=== PATIENT | male | born 1940 | race Caucasian/White ===

== ENCOUNTER → 2016-11-14 | Outpatient (CLI) | payer MEDICARE, OTHER | LOC: MW.CHENT 08:00 | PROVIDERS: ATTEND Otolaryngology | DX: R49.0 Dysphonia (principal); J38.7 Other diseases of larynx; K21.9 Gastro-esophageal reflux disease without esophagitis | CPT/HCPCS: 31575; G0463 ==

== ENCOUNTER 2016-12-14 10:31 | Day surgery (SDC) | payer MEDICARE, OTHER ==
[~2016-12-14 10:31] MED LIST: Lactated Ringers 1,000 ML IV SCH
--- NOTE | 2016-12-14 12:47 | PCM.PREANE ---
Preanesthetic Assessment - Procedure Proposed Procedure: laryngoscopy with biopsy of known lesion for diagnosis - Anesthesia/Transfusion/Family Hx Anesthesia History: Prior Anesthesia Without Reaction Type of Anesthesia Reaction: Unknown Other Type of Anesthesia Reaction Comment: Denies any known problems in past, no known family hx: problems Family History of Anesthesia Reaction: No Type of Transfusion Reactions: Reports: Unknown Intubation History: Unknown Additional History: Stroke within last year. Spouse at bedside for interview and exam. - Review of Systems General: Weakness (with some orthostatic light headedness since stroke) Pulmonary: No Symptoms Cardiovascular: Other (HTN, Hypercholesterolemia, Thrombocytopenia, CAD (uses nitroglycerin)) Neurological: Pre-Existing Deficit (right hand dysfunction since stroke), Weakness, Other (Parkinsonism) Other: Reports: Thyroid Problems (hypothyroid), Depression, Anxiety - Physical Assessment NPO Status Date: 12/13/16 NPO Status Time: 21:30 O2 Sat by Pulse Oximetry: 96 Respiratory Rate: 16 Vital Signs: Last Vital Signs Temp 99.3 F 12/14/16 11:12 Pulse 69 12/14/16 11:12 Resp 16 12/14/16 11:12 BP 155/89 H 12/14/16 11:12 Pulse Ox 96 12/14/16 11:12 Height: 5 ft 10 in Weight: 186 lb ASA Class: 3 Mental Status: Alert & Oriented x3 Airway Class: Mallampati = 4 Dentition: Reports: [place](s), Broken Tooth/Teeth Thyro-Mental Finger Breadths: 3 Mouth Opening Finger Breadths: 2 ROM/Head Extension: Limited/Partial Lungs: Clear to auscultation, Normal respiratory effort Cardiovascular: Regular Rate, Regular Rhythm, No Murmurs - Allergies Allergies/Adverse Reactions: Allergies Allergy/AdvReac Type Severity Reaction Status Date / Time bupropion Allergy UNKNOWN Verified 03/02/16 13:49 MDT ciprofloxacin [From Cipro] Allergy Stomach Verified 03/02/16 13:49 MDT Upset - Blood Blood Available: No Product(s) Available: None - Anesthesia Plan Pre-Op Medication Ordered: None - Acknowledgements Anesthesia Type Planned: General Anesthesia (will need to use indirect laryngoscopy for airway access) Pt an Appropriate Candidate for the Planned Anesthesia: Yes Alternatives and Risks of Anesthesia Discussed w Pt/Guardian: Yes Pt/Guardian Understands and Agrees with Anesthesia Plan: Yes PreAnesthesia Questionnaire HEENT History: Reports: Glaucoma, Retinal Detachment Cardiovascular History: Reports: CAD, High Cholesterol, Hypertension Respiratory History: Reports: Other (See Below) Gastrointestinal History: Reports: Hiatal Hernia, Other (See Below) Other Gastrointestinal History: schatzcki's ring Genitourinary History: Reports: Prostate Disorder, Renal Calculus Musculoskeletal History: Reports: Arthritis, Back Pain, Chronic, Fracture, Other (See Below) Other Musculoskeletal History: shoulder pain Neurological History: Reports: CVA, Parkinson's, Vertigo, Other (See Below) Other Neuro History: R hand paresthesia, "bleeding stroke in jun, 2016" Psychiatric History: Reports: Anxiety, Depression Endocrine/Metabolic History: Reports: Hypothyroidism Hematologic History: Reports: Other (See Below) Other Hematologic History: thrombocytopenia Oncologic (Cancer) History: Reports: Prostate Dermatologic History: Reports: Psoriasis - Past Surgical History Head Surgeries/Procedures: Reports: None HEENT Surgical History: Reports: Adenoidectomy, Detached Retina, Tonsillectomy Cardiovascular Surgical History: Reports: Coronary Artery Stent GI Surgical History: Reports: EGD Male Surgical History: Reports: Prostatectomy Musculoskeletal Surgical History: Reports: Other (See Below) Other Musculoskeletal Surgeries/Procedures:: rt carpal tunnel procedure, ORIF of R tibia - SUBSTANCE USE Smoking Status *Q: Former Smoker Second Hand Smoke Exposure: No Days Per Week of Alcohol Use: 0 Number of Drinks Per Day: 0 Total Drinks Per Week: 0 Recreational Drug Use History: No - HOME MEDS Home Medications: Home Meds Omeprazole 20 mg PO BRK 11/18/13 [History] Potassium Chloride 2 tab PO DAILY 11/18/13 [History] Rosuvastatin [Crestor] 20 mg PO BEDTIME 11/18/13 [History] Levothyroxine [Synthroid] 1 tab PO ACBRK 07/11/14 [History] Nitroglycerin [IJP: Nitroglycerin] 1 tab SL ASDIRECTED PRN 02/23/16 [History] Carbidopa/Levodopa [Carbidopa-Levodopa 10-100] 1 tab PO TID 12/12/16 [History] Cholecalciferol (Vitamin D3) [Vitamin D3] 5,000 units PO DAILY 12/12/16 [History ] Docusate Sodium/Sennosides [Senna Plus] 1 tab PO BID 12/12/16 [History] Lisinopril 20 mg PO BEDTIME 12/12/16 [History] Midodrine 5 mg PO ASDIRECTED 12/12/16 [History] Multivitamin [Multivitamins] 1 tab PO DAILY 12/12/16 [History] Venlafaxine HCl [Venlafaxine HCl ER] 150 mg PO DAILY 12/12/16 [History] - CURRENT (IN HOUSE) MEDS Current Meds: Current Medications Lactated Ringer's (Ringers, Lactated) 1,000 mls @ 100 mls/hr IV ASDIRECTED [facility] Last Admin: 12/14/16 10:50 Dose: 100 mls/hr
[2016-12-14] MEDS ORDERED: Propofol 200 MG/20 ML SDV ONE (13:11)
[2016-12-14] MEDS ORDERED: fentaNYL 250 MCG/5 ML SDV ONE (13:12)
[2016-12-14] MEDS ORDERED: Midazolam 1 MG/ML 2 ML SDV ONE (13:12)
--- NOTE | 2016-12-14 13:12 | PCM.HPR ---
H & P Addendum review - H & P Addendum Review Date of Original H & P: 11/14/16 Date Reviewed: 12/14/16 Time Reviewed: 11:25 Patient was examined: No Changes
[2016-12-14] MEDS ORDERED: EPINEPHrine 1:1000 1 MG/ML SDV ONE (13:15)
[2016-12-14] MEDS ORDERED: Oxymetazoline 0.05% Nasal Spray 15 ML Bottle ONE (13:16)
--- NOTE | 2016-12-14 14:22 | PCM.POSTAN ---
POST ANESTHESIA ASSESSMENT - MENTAL STATUS Mental Status: alert, oriented - VITAL SIGNS Pulse Rate: 77 SaO2: 98 Resp Rate: 14 Blood Pressure: 140/77 Temperature: 36.2 C - RESPIRATORY Respiratory Status: respiratory rate WNL, airway patent, O2 saturation stable - CARDIOVASCULAR CV Status: pulse rate WNL, blood pressure stable - GASTROINTESTINAL GI Status: no symptoms - PAIN Pain Score: 0 - POST OP HYDRATION Hydration Status: adequate & stable
--- NOTE | 2016-12-14 14:51 | PCM.OPNOTE ---
- General Post-Op/Procedure Note Condition: Good Free Text/Narrative:: Diagnosis: Dysphonia; Lesion Right true vocal cord Procedure: Direct laryngoscopy [ CPT 68569] Surgeon: Gabriela Pro MD Anesthesia: GA Anesthesiologist: Dr Geovanny MCCLURE Date of procedure: 12/14/2016 Indications: Dysphonia; Lesion Right true vocal cord; ex smoker; h/o prostate cancer Findings: Vj normal true and false vocal cords; prominent vocal process of arytenoid; rest larynx - normal Operation Details: An informed consent was obtained. A time out was performed and the patient was brought back to the operating room. Gen. anesthesia was administered with an endotracheal tube - microlaryngoscopy tube. The patient was appropriately positioned on the operating table. Due to arthritis of the cervical spine his neck was fixated in a neutral position and no extension was possible at all-very difficult laryngoscopy . An adult-sized Marguerite laryngoscope was introduced after the upper teeth were protected with a gum shield. A laryngoscope was positioned in the vallecula. Suspension was extremely difficult due to neck position. A very limited direct view of the arytenoids was possible. 0 and then 30 and laryngeal endoscopes were used to obtain a view of the endolarynx. A good view was obtained. No lesion was visualized on the right true vocal cord. There was bilaterally symmetric prominence at the posterior one third of the true vocal cord corresponding to site of the vocal process of arytenoids. Entire endolarynx examined was normal. No biopsies were obtained. The laryngoscope was carefully removed. Teeth, gums and lips were intact. This concluded the procedure. Specimens: none IV fluids: 400 ml Blood loss: nil Blood products: nil Disposition: PACU for recovery Follow up: PRN.
--- NOTE | 2016-12-14 15:13 | PCM48HPAN ---
Post Anesthesia Note - EVALUATION WITHIN 48HRS OF ANESTHETIC Vital Signs in Normal Range: Yes Patient Participated in Evaluation: Yes Respiratory Function Stable: Yes Airway Patent: Yes Cardiovascular Function Stable: Yes Pain Control Satisfactory: Yes Nausea and Vomiting Control Satisfactory: Yes Mental Status Recovered: Yes
[2016-12-14 16:04] VITALS: BP 140/74
== END 2016-12-14 15:15 | disposition home or self-care (01) ==
LOC: MW.SDS 10:31
PROVIDERS: ATTEND Otolaryngology
PROC: 0CJS8ZZ Inspection of Larynx, Via Natural or Artificial Opening Endoscopic (ICD-10-PCS; principal; 2016-12-14)
DX: R49.0 Dysphonia (principal); J38.3 Other diseases of vocal cords; Z85.46 Personal history of malignant neoplasm of prostate; M19.90 Unspecified osteoarthritis, unspecified site; R10.13 Epigastric pain; H40.9 Unspecified glaucoma; E78.5 Hyperlipidemia, unspecified; I10 Essential (primary) hypertension; E03.9 Hypothyroidism, unspecified; D69.6 Thrombocytopenia, unspecified
CPT/HCPCS: 31526; J0171; J2250; J3010; J7120; 00320; A9270-GY; J2704